=== PATIENT | female | born 1970 | race Caucasian/White ===

== ENCOUNTER → 2021-01-30 | Outpatient (CLI) | payer OTHER | LOC: EXRD 08:49 | DX: M79.641 Pain in right hand (principal); M79.642 Pain in left hand; R76.8 Other specified abnormal immunological findings in serum; M79.671 Pain in right foot; M79.672 Pain in left foot; M21.612 Bunion of left foot; M21.611 Bunion of right foot | CPT/HCPCS: 73130; 73630 ==

== ENCOUNTER 2021-08-04 10:57 | Emergency (ER) | payer OTHER ==
[2021-08-04] MEDS ORDERED: Voltaren Gel 1 % TOP (12:33)
== END 2021-08-04 12:49 | disposition home or self-care (01) ==
LOC: ER1 10:57
DX: M25.531 Pain in right wrist (principal); F17.210 Nicotine dependence, cigarettes, uncomplicated
CPT/HCPCS: 73110; 96372; 99283; J2930

== ENCOUNTER 2022-01-02 23:02 | Emergency (ER) | payer OTHER ==
[~2022-01-02 23:02] MED LIST: Voltaren Gel 1 % TOP
[2022-01-03 01:05] LABS: HEMOGLOBIN 13.8 gm/dl (12.3-15.3); RED BLOOD COUNT 4.3 M/UL (4.00-5.10)
[2022-01-03 01:31] LABS: BUN/CREATININE RATIO 16 (0-10)
== END 2022-01-03 03:00 | disposition home or self-care (01) ==
LOC: ER1 23:02
PROVIDERS: Physician Assistant Medical
DX: M25.512 Pain in left shoulder (principal); R22.1 Localized swelling, mass and lump, neck
CPT/HCPCS: 70491; 71260; 80053; 85025; 99284; Q9967